=== PATIENT | male | born 1955 | race Caucasian/White ===

== ENCOUNTER → 2017-07-12 09:45 | Outpatient (CLI) | payer BC, SELFPAY ==
[2017-07-12 12:08] LABS: Absolute Lymphocyte Count 1.81 X10^3/ul (0.83-4.51); Absolute Neutrophil Count 2.7 X10^3/uL (2.0-7.7); Basophil# 0.02 X10^3/uL; Basophil% 0.4 % (0-1); Eosinophil# 0.11 X10^3/uL; Eosinophils% 2.2 % (0-5); Hematocrit 47.2 % (40-54); Lymphocyte # 1.81 X10^3/ul (4.0); Lymphocyte % 36.6 % (19-41); Mean Corp Hgb Conc 33.9 g/gl (32-36); Mean Corpuscular Hgb 28.5 pg (27.0-32.0); Mean Platelet Vol. 9.5 fl (6.2-12.0); Monocyte# 0.31 X10^3/uL; Monocyte% 6.3 % (0-10); Neutrophil # 2.67 X10^3/uL (2.7-7.7); Neutrophil % 54.1 % (47-70); Platelet Count 256 K/mm3 (150-450); RBC Distribution Width CV 12.9 % (11.6-14.6); RBC Distribution Width SD 39.8 fl (35.1-43.9); Red Blood Count 5.62 M/mm3 (4.6-6.2); White Blood Count 4.9 K/mm3 (4.4-11.0)
[2017-07-12 12:14] LABS: POSITIVE COUNT NO; POSITIVE DIFFERENTIAL NO; POSITIVE MORPHOLOGY NO
[2017-07-12 12:23] LABS: ALB/GLOB Ratio 1.1 RATIO (0.9-2.4); AST(SGOT) 18 U/L (15-37); Alanine Aminotransfer ALT/SGPT 29 U/L (16-61); Albumin, Serum 3.8 g/dL (3.2-5.0); Alkaline Phosphatase 65 U/L (45-117); Anion Gap 6 (5-15); BUN 16 mg/dL (7-18); BUN/Creat Ratio 13.6 RATIO (10-20); Calcium,Total 8.7 mg/dL (8.5-10.1); Chloride 107 mmol/L (98-107); Cholesterol 191 mg/dL (200); Creatinine, Serum 1.18 mg/dL (0.70-1.30); EST Glomerular Filtration Rate 67 mL/min (>60); Est Glom Filt Rate - Afr Amer 81 mL/min (>60); Globulin 3.4 g/dL (2.2-4.2); Glucose 97 mg/dL (74-106); High Density Lipoprotein 53 mg/dL; PSA,Total - Annual Screen 0.78 ng/mL (0.00-4.00); Potassium 3.7 mmol/L (3.5-5.1); Protein, Total 7.2 g/dL (6.4-8.2); Sodium Level 141 mmol/L (136-145); Thyroid Stim Hormone (TSH) 5.22 uIU/mL (0.358-3.74); Triglycerides 96 mg/dL; Very Low Density Lipoprotein 19 mg/dL (5-40)
== END ==
PROVIDERS: Family Provider Family Medicine; PCP Family Medicine; Visit Provider Family Medicine
DX: Z00.01 Encounter for general adult medical examination with abnormal findings (principal); Z12.5 Encounter for screening for malignant neoplasm of prostate; R53.83 Other fatigue
CPT/HCPCS: 36415; 80053; 80061; 84153; 84443; 85025; G0103

== ENCOUNTER 2017-08-17 07:48 | Day surgery (SDC) | payer BC, SELFPAY ==
[2017-08-17 08:13] VITALS: BP 130/87; PULSE 64; RESP 16; TEMP 36.4; O2SAT 100; BMI 23.7
--- NOTE | 2017-08-17 08:33 | H&P.OPEN ---
Past Medical/Surgical History - Planned Operation Planned Operative Procedure/s: COLONOSCOPY Date of Operative Procedure: 08/17/17 Permit Signed: Yes S.O.S: No Is This Patient Having a Total Joint: No - Previous Hospitalizations/Surgeries HX Hospitalizations: No Any Problems With Anesthesia: No You/Your Family Experience Fever (Hyperthermia) With Anes: No Cholinesterase deficiency: No - Cardiovascular Hx Chest Pain within Last 2 months: No Hx of Irregular Heartbeat and/or Afib: No Hx Heart Attack: No Hx Congestive Heart Failure: No Hx Rheumatic Fever: No Hx Hypertension: No Hx Internal Defibrillator: No Hx Pacemaker: No Hx Cardiac Catheterization: No Hx Cardiac Surgery/Stents/Etc.: No Hx Stress Test: No HX Edema: No Hx Pain in Legs when Walking/Leg Cramps: No - Respiratory Chronic Cough: No HX of Shortness of Breath: No Hoarseness: No Hx Chronic Obstructive Pulmonary Disease (COPD): No Hx Asthma: No Hx Emphysema: No Hx Sleep Apnea: No Hx Oxygen Use at Home: No Hx Respiratory Tract Infection/Cold (presently): No Do You Snore Loudly (louder than talking or can be heard): No Do You Often Feel Tired/ Fatigued/ Sleepy Dring Daytime?: No Has Anyone Observed You Stop Breathing During Sleep?: No Result (for STOP score): Negative Hx Smoking: No Smoking Status: Never smoker - Gastrointestinal Hx Gastroesophageal Reflux: No Hx Gastrointestinal Disorders: No Hx Gastrointestinal Bleed: No Hx Ulcer: No Hx Hiatal Hernia: No Difficulty Chewing/Swallowing: No Recent Onset of Swallowing Problems: No Special diet followed at home: No Hx Unplanned Weight Loss of 20#: No HX Unplanned Weight Gain of 20#: No - Neurological Hx Seizures: No HX Syncope/Blackout Spells/Unconsciousness: No Hx CVA/Stroke: No Hx Transient Ischemic Attacks (TIA): No Hx Multiple Sclerosis: No Hx Parkinson's Disease: No Hx Head/Neck Injury: No Hx Headaches: Yes Hx Back Injury/Pain: Yes Recent Onset of Speech Difficulty: No Restless Legs: No Does patient have nerve stimulator: No - Blood Disorder Hx Leukemia: No Bleeding Tendencies: No Hx Deep Vein Thrombosis: No Hx High Cholesterol: No Blood Transmitted Disease: No Hx Hepatitis: No Hx Cirrhosis: No Hx Anemia: No Hx Blood Disorders: No - Genitourinary Hx Renal Disease: No - Musculoskeletal Hx Arthritis: No Hx Rheumatoid Arthritis: No Hx Gout: No Recent Onset of an Orthopedic Problem: No - Endocrine Hx Diabetes: No Thyroid Disease: No Hx Steroid Therapy: No - Psycho/Social Hx Substance Use: No Hx Alcohol Use: No Hx Anxiety: No Hx Depression: No Mental Illness: No Hx Dementia: No - Miscellaneous Hx Cancer: No Recent Exposure to Contagious Disease: No Active MRSA: No Hx of C-Diff: No Any Loose Teeth: No Allergies No Known Allergies Allergy (Verified 08/16/17 10:49) - Discharge Is Pt Admitted From a Assisted, or a Usp: No Who Could Help: -GILLIAN After D/C, Where Do you Plan to Go: Return Home - Physical Exam General: Alert, Oriented x3, Cooperative HEENT: Atraumatic Lungs: Normal air movement Cardiovascular: Regular rate, Regular Rhythm Abdomen: Soft, Non Tender, Non-Distended Vital Signs Temp Pulse Resp BP Pulse Ox 97.5 F L 64 16 130/87 H 100 08/17/17 08:13 08/17/17 08:13 08/17/17 08:13 08/17/17 08:13 08/17/17 08:13 Oxygen Delivery Method Room Air Weight: 184 lb 11.958 oz Body Mass Index (BMI) 23.7 Assessment/Plan 62-year-old male for screening colonoscopy 1. Patient reports no issues at this time. He is not having any bleeding or abdominal pain. He has no family history of colon cancer. The patient has never had a colonoscopy in the past. 2. I explained endoscopy in detail to the patient. I explained the risks including but not limited to stroke or heart attack with anesthesia, perforation of the GI tract, bleeding, infection. I explained that any of these could necessitate further emergency surgery. The patient understands and all questions were answered sufficiently. The patient wishes to proceed with procedure. Tobias Downey MD Pager: [facility] [address] [place] [address] Office: Surgery Risks - Colonoscopy Risks Include but are not Limited To: Risks include but are not limited to: Bleeding, perforation requiring further surgery, inability to complete colonoscopy requiring barium enema.
[2017-08-17 09:05] VITALS: BP 130/87; BP 91/72; PULSE 70; RESP 16; TEMP 36.1; O2SAT 100
--- NOTE | 2017-08-17 09:05 | PCM.OPRPT ---
Problem List (1) Screen for colon cancer Status: Acute Report of Operation Date of Procedure: 08/17/17 Pre-Operative Diagnosis: Screening colonoscopy Post-Operative Diagnosis: Normal colonoscopy Surgery/Procedure Performed:: Colonoscopy Description of Procedure: The major risks and benefits associated with the procedure were explained to the patient in detail. The patient verbalized understanding and agreement with the same. The patient was brought to the endoscopy suite. After adequate sedation was achieved, the patient was placed in the left lateral decubitus position and a digital rectal exam was performed. This examination was within normal limits. A well-lubricated colonoscope was then inserted into the rectum and advanced under direct visualization to the level of the cecum. The bowel prep was good. The cecum was identified by both visual and anatomic landmarks. A photograph was taken of the end of the cecum. The scope was then fully withdrawn while examining the color, texture, anatomy and integrity of the mucosa from the cecum to the anal canal. The findings were consistent with normal colonic mucosa. Over 6 minutes were taken to examine the colonic mucosa. Upon reaching the rectum the scope was retroflexed to examine the distal rectal vault. The scope was then straightened and was completely retrieved upon exiting the anal canal and the procedure was terminated. The patient was then transferred to the recovery room in stable condition. Recommendations for follow up: 10 years
[2017-08-17 09:10] VITALS: BP 111/85; BP 130/87; PULSE 65; RESP 16; O2SAT 100
[2017-08-17 09:15] VITALS: BP 130/87; BP 95/67; PULSE 62; RESP 16; O2SAT 100
[2017-08-17 09:20] VITALS: BP 130/87; BP 98/72; PULSE 58; RESP 16; TEMP 36.4; O2SAT 100
[2017-08-17 09:46] VITALS: BP 130/87
== END 2017-08-17 09:52 | disposition home or self-care (01) ==
LOC: EN 07:48 → AC 07:51
PROVIDERS: Family Provider Family Medicine; PCP Family Medicine; Visit Provider Surgery
PROC: 0DJD8ZZ Inspection of Lower Intestinal Tract, Via Natural or Artificial Opening Endoscopic (ICD-10-PCS; CPT 45378; principal; 2017-08-17 08:40)
DX: Z12.11 Encounter for screening for malignant neoplasm of colon (principal)
CPT/HCPCS: 45378; J7120

== ENCOUNTER 2018-04-04 18:41 | Emergency (ER) | payer OTHER, BC, SELFPAY ==
[2018-04-04 18:41] VITALS: BP 136/86; PULSE 83; RESP 20; TEMP 36.3; O2SAT 100; BMI 24.2
--- NOTE | 2018-04-04 19:02 | RAD_ITS ---
HISTORY: PAIN TO ANTERIOR LOWER RIBS WITH PALPABLE LUMP S/P FALL DOWN [facility] COMPARISON: None FINDINGS: # of images incl. paperwork: 5 XR Ribs Unilateral W/ PA Chest Min 3 Views: PA chest 4 views right ribs. LINES/DEVICES: None. LUNGS: Radiographically clear. No consolidation, edema or effusion. No pneumothorax. MEDIASTINUM AND CARDIOVASCULAR STRUCTURES: Cardiac silhouette not enlarged. Central airways and mediastinal contour are unremarkable. RIBS AND OSSEOUS STRUCTURES: Unremarkable. No fractures. RAD/Ribs Uni Min 3V w/PA Chest IMPRESSION: Negative chest and ribs series. at 1927 Reported and signed by: Farhad Alexander MD Electronically Signed: Farhad Alexander, at 19:26 EST Tel , Service support ,
[2018-04-04 20:08] VITALS: BP 119/90; PULSE 81; RESP 16; O2SAT 99
--- NOTE | 2018-04-04 20:32 | CT_ITS ---
HISTORY: RUQ PAIN, FELL ON STEPS AT WORK, RT RIB PAIN TECHNIQUE: Helically acquired images were obtained of the abdomen and pelvis following IV contrast. A radiation dose optimization technique was used for this scan. IV Contrast dosage and agent: 100 cc Isovue-300 administered intravenously. Oral contrast: None. COMPARISON: Chest and right rib radiographs same date. FINDINGS: # of images incl. paperwork: 376 LOWER CHEST: Lung bases are clear. No cardiomegaly or pericardial effusion observed. LIVER: Homogeneous. No focal mass. No apparent hepatic injury. GALLBLADDER AND BILIARY TREE: No calcified gallstones. There is no gallbladder distension or wall edema. No intra- or extrahepatic biliary ductal dilation. KIDNEYS AND URETERS: Normal renal size and position. There is no hydronephrosis or evidence of renal injury. ADRENAL GLANDS: Non-enlarged. SPLEEN: Normal size without focal cystic or solid mass. PANCREAS: No focal cystic or solid mass. BOWEL: No stomach or bowel distension. No focal inflammatory change observed. Normal appendix. LYMPH NODES: No enlarged mesenteric or retroperitoneal lymph nodes. PERITONEUM: No ascites or free air. No other fluid collection. VESSELS: Aorta is non-dilated. URINARY BLADDER: Incompletely distended, otherwise grossly unremarkable. REPRODUCTIVE ORGANS: No pelvic masses or pelvic ascites. ABDOMINAL WALL: No discrete abdominal or pelvic wall hernia observed. BONES: No acute fracture or concerning osseous lesions. CT/Abdomen/Pelvis W IV Cont ONLY IMPRESSION: No apparent injury or etiology for right upper quadrant pain. Individualized dose optimization techniques were used for this CT. at 2229 Reported and signed by: Farhad Alexander MD Electronically Signed: Farhad Alexander, at 22:28 EST Tel , Service support ,
[2018-04-04] MEDS: Ondansetron 4 MG/2 ML Vial IV (20:56)
[2018-04-04] MEDS: 0.9% Normal Saline 1,000 ML 1000 ML IV (20:56)
[2018-04-04] MEDS: Morphine 4 MG/ML Syringe IV (20:58)
[2018-04-04 21:15] LABS: Absolute Lymphocyte Count 1.69 X10^3/ul (0.83-4.51); Absolute Neutrophil Count 6.4 X10^3/uL (2.0-7.7); Basophil# 0.02 X10^3/uL; Basophil% 0.2 % (0-1); Eosinophil# 0.07 X10^3/uL; Eosinophils% 0.8 % (0-5); Hematocrit 45.6 % (40-54); Hemoglobin 15.2 g/dl (13.0-16.5); Lymphocyte # 1.69 X10^3/ul (4.0); Lymphocyte % 19.7 % (19-41); Mean Corp Hgb Conc 33.3 g/gl (32-36); Mean Corpuscular Hgb 28.4 pg (27.0-32.0); Mean Corpuscular Volume 85.2 fL (80-94); Mean Platelet Vol. 9.1 fl (6.2-12.0); Monocyte# 0.37 X10^3/uL; Monocyte% 4.3 % (0-10); Neutrophil % 74.8 % (47-70); Platelet Count 210 K/mm3 (150-450); RBC Distribution Width CV 13.3 % (11.6-14.6); RBC Distribution Width SD 41.2 fl (35.1-43.9); Red Blood Count 5.35 M/mm3 (4.6-6.2); White Blood Count 8.6 K/mm3 (4.4-11.0)
[2018-04-04 21:20] LABS: POSITIVE COUNT NO; POSITIVE DIFFERENTIAL NO; POSITIVE MORPHOLOGY NO
--- NOTE | 2018-04-04 21:22 | ED.DCSUM_ITS ---
- ER Visit Summary Date of Service: 04/04/18 Chief Complaint: Fall History of Present Illness: The patient is a [address] Horn. He reports that at work today he slipped on the steps and fell onto his buttocks. He reports that the pain that he is experiencing in the right upper quadrant and lower right ribs. States pain was 8 out of 10 worsened through 10 currently. He describes it as sharp. States is worsened by movement relieved by rest. Patient denies any blow to the head or loss of consciousness. No neck, shoulder, wrist, or hip pain. He is not on blood thinner. Physical Examination: Vitals: Stable. Afebrile. Neck: No vertebral tenderness. Full ROM without difficulty. Cleared by NEXUS criteria. Back: No vertebral tenderness. General: A&O x 3. NAD. Cardiovascular exam: Regular rate and rhythm, no murmur, rub or gallop. Respiratory exam: Moderate tenderness palpation over the lower ribs on the right both anteriorly and posteriorly. This area does appear swollen anteriorly. There is no contusion or fluid collection. No crepitus. Clear to auscultation bilaterally. No wheezes or stridor. Abdominal exam: Soft, moderate tenderness palpation right upper quadrant, nondistended, normal bowel sounds. No pain in RUQ or LUQ specifically. No perito vitor signs. Extremity: Atraumatic. No pain with range of motion. Test Results: Right rib series shows no acute disease. No pneumothorax or rib fractures. CT and pelvis with IV contrast only shows no acute disease. CBC is more for segment neutrophils 75. Chem-7 more for BUN of 21. LFTs are normal. Emergency Department Course and Treatment: Patient was treated with morphine and Zofran IV. He is resting comfortably. Treatment Plan: Patient will be discharged with [place]. Instructed to follow-up with corporate care in 1 week for another exam. Return to the emergency department for any worsening symptoms. Disposition: To home in improved and stable condition. Impression: 1 1. Fall. 2. Chest/upper abdominal swelling. This note was generated with [employer] dictation software. It may contain incorrect words, spelling, and punctuation that were not noted in review of the chart prior to signing ED Disposition - Plan for ED Patient: Disposition: Home or Assisted Living Instructions: ED Contusion Chest Wall Prescriptions: Hydrocodone Bitart/Apap 5-325 [[place] 5MG-325MG] 1 tablet PO Q4H PRN PRN 2 Days #10 tablet PRN Reason: Pain Referrals: Corporate,Care [GROUP OF PHYSICIANS] - 1 Week
[2018-04-04 21:32] LABS: ALB/GLOB Ratio 1.2 RATIO (0.9-2.4); AST(SGOT) 16 U/L (15-37); Alanine Aminotransfer ALT/SGPT 24 U/L (16-61); Albumin, Serum 3.7 g/dL (3.2-5.0); Alkaline Phosphatase 69 U/L (45-117); Anion Gap 6 (5-15); BUN 21 mg/dL (7-18); BUN/Creat Ratio 18.8 RATIO (10-20); Calcium,Total 8.6 mg/dL (8.5-10.1); Chloride 107 mmol/L (98-107); Creatinine, Serum 1.12 mg/dL (0.70-1.30); EST Glomerular Filtration Rate 71 mL/min (>60); Est Glom Filt Rate - Afr Amer 86 mL/min (>60); Estimated Creatinine Clearance 80.53 ml/min; Globulin 3.2 g/dL (2.2-4.2); Glucose 105 mg/dL (74-106); Potassium 3.7 mmol/L (3.5-5.1); Protein, Total 6.9 g/dL (6.4-8.2); Sodium Level 141 mmol/L (136-145)
[2018-04-04 22:10] VITALS: BP 131/81; PULSE 64; RESP 17; O2SAT 96
[2018-04-04] MEDS: HYDROcodone Bitartrate/Apap 5/325 Tablet PO (23:31)
--- NOTE | 2018-04-04 23:33 | ED.RN ---
pt's employer does not require a test. they are to follow up with corporate care.
[2018-04-04 23:34] VITALS: BP 128/97; PULSE 67; RESP 16; O2SAT 97
== END 2018-04-04 23:35 | disposition home or self-care (01) ==
PROVIDERS: Emergency Provider Emergency Medicine; Family Provider Family Medicine; PCP Family Medicine
DX: R22.2 Localized swelling, mass and lump, trunk (principal); R19.01 Right upper quadrant abdominal swelling, mass and lump; W10.8XXA Fall (on) (from) other stairs and steps, initial encounter; Y99.0 Civilian activity done for income or pay
CPT/HCPCS: 71101; 74177; 80053; 85025; 96361; 96374; 96375; 99285; J7030; Q9967; J2405

== ENCOUNTER → 2019-04-25 16:06 | Outpatient (CLI) | payer OTHER, SELFPAY ==
[2019-03-26 09:28] VITALS: BMI 24.2
--- NOTE | 2019-04-25 16:12 | RAD_ITS ---
STUDY: X-RAY - LUMBAR SPINE REASON FOR EXAM: Male, 64 years old. PERSISTENT LOW BACK PAIN WITH INTERMITTENT RADIATION TO THE RIGHT LEG X 2 MONTHS CLINICAL HISTORY: 64 years Male, PERSISTENT LOW BACK PAIN WITH INTERMITTENT RADIATION TO THE RIGHT LEG X 2 MONTHS COMPARISON: None. TECHNIQUE: 5 view FINDINGS: Studies of the lumbar spine in 5 projections shows all the lumbar vertebrae to be in excellent anatomic position and alignment. On the oblique views the lamina are all intact. The intervertebral disc spaces are all well maintained. There is no evidence of fracture, dislocation or bony destruction. RAD/L/S Spine Min 4 Views IMPRESSION: Normal 5 view lumbar spine. Electronically Signed: Basilio Miller, at 15:22 EST Tel , Service support ,
[2019-04-25 17:43] LABS: Absolute Lymphocyte Count 1.95 X10^3/uL (0.83-4.51); Absolute Neutrophil Count 4.3 X10^3/uL (2.0-7.7); Basophil# 0.03 X10^3/uL; Basophil% 0.4 % (0-1); Eosinophil# 0.17 X10^3/uL; Eosinophils% 2.4 % (0-5); Hematocrit 47.3 % (40-54); Hemoglobin 15.2 g/dL (13.0-16.5); Lymphocyte # 1.95 X10^3/ul (4.0); Lymphocyte % 27.7 % (19-41); Mean Corp Hgb Conc 32.1 g/dL (32-36); Mean Corpuscular Hgb 27.3 pg (27.0-32.0); Mean Corpuscular Volume 84.9 fL (80-94); Mean Platelet Vol. 9.3 fl (6.2-12.0); Monocyte# 0.54 X10^3/uL; Monocyte% 7.7 % (0-10); NRBC Flagged by Analyzer 0 % (0-5); Neutrophil # 4.33 X10^3/uL (2.7-7.7); Neutrophil % 61.5 % (47-70); Platelet Count 218 K/mm3 (150-450); RBC Distribution Width CV 13.3 % (11.6-14.6); RBC Distribution Width SD 40.9 fl (35.1-43.9); Red Blood Count 5.57 M/mm3 (4.6-6.2)
[2019-04-25 18:14] LABS: ALB/GLOB Ratio 1.1 RATIO (0.9-2.4); AST(SGOT) 16 U/L (15-37); Alanine Aminotransfer ALT/SGPT 31 U/L (16-61); Albumin, Serum 3.8 g/dL (3.2-5.0); Alkaline Phosphatase 64 U/L (45-117); Anion Gap 3 (5-15); BUN 19 mg/dL (7-18); BUN/Creat Ratio 17.3 RATIO (10-20); Chloride 105 mmol/L (98-107); EST Glomerular Filtration Rate 72 mL/min (>60); Est Glom Filt Rate - Afr Amer 87 mL/min (>60); Globulin 3.5 g/dL (2.2-4.2); Glucose 90 mg/dL (74-106); PSA,Total - Annual Screen 0.76 ng/mL (0.00-4.00); Potassium 3.9 mmol/L (3.5-5.1); Protein, Total 7.3 g/dL (6.4-8.2); Sodium Level 140 mmol/L (136-145); T4 Free Direct 0.93 ng/dL (0.76-1.46); Thyroid Stim Hormone (TSH) 5.76 uIU/mL (0.358-3.74)
== END ==
PROVIDERS: PCP Family Medicine; Referring Provider Family Medicine; Visit Provider Family Medicine
DX: Z00.00 Encounter for general adult medical examination without abnormal findings (principal); Z12.5 Encounter for screening for malignant neoplasm of prostate; R79.89 Other specified abnormal findings of blood chemistry; M54.17 Radiculopathy, lumbosacral region
CPT/HCPCS: 36415; 72110; 80053; 84153; 84439; 84443; 85025; G0103

== ENCOUNTER 2023-10-28 09:21 | Day surgery (SDC) | payer MEDICARE, SELFPAY ==
[2023-10-28] VITALS (10 sets, daily range): BP systolic 115–139; BP diastolic 86–94; PULSE 55–75; RESP 14–18; TEMP 36–36.6; O2SAT 95–100; BMI 23.0
--- NOTE | 2023-10-28 09:49 | EKG12_ITS ---
Test Reason : preop Blood Pressure : / mmHG Vent. Rate : 062 BPM Atrial Rate : 062 BPM P-R Int : 168 ms QRS Dur : 094 ms QT Int : 404 ms P-R-T Axes : 070 051 010 degrees QTc Int : 410 ms Normal sinus rhythm Normal ECG No previous ECGs available Confirmed by Dameon Ruiz ([id number]), material expeditor [place] ([id number]) on 10/29/2023 6:36:34 AM Referred By: Nerissa Vazquez Confirmed By:Dameon Ruiz
[2023-10-28] MEDS: Lactated Ringers 1,000 ML 15 ML IV (09:54)
--- NOTE | 2023-10-28 09:57 | PCM.HP.BLA ---
History and Physical Date of Admission: 10/28/23 Date of Service: 10/05/23 MR#: [id number] Acct: [id number] Name: HUSSAIN DAIGLE Jr. Rep #: [id number] : 1955 Provider: Dr. Nerissa Vazquez MD Age/Sex: 68/M Location: [facility] Status: Signed Intake Vital Signs 03/26/2008:23 10/04/2413:33 Height 6 ft 2 in 6 ft 2 in Weight: 185 lb BMI 23.7 BP 108/71 Blood Pressure Location Rt brachial Position Sitting Respiration 17 Pulse 70 Pulse Source Monitor Temp 97.2 F L Temp Source Temporal Pulse Oximetry (%) 95 Oxygen Delivery Method room air Intake Visit Reasons: HERNIA'S Chief Complaint: hernia's Is patient in pain?: No Allergies No Known Allergies Allergy (Verified 10/05/23 14:35) Medications ?Medication ?Instructions ?Recorded ?Confirmed ?Type omega 5-hzu-gmw-fish oil 60 mg-90 1 cap PO DAILY 10/05/23 10/05/23 History mg-500 mg capsule (Fish Oil) Have you fallen in the past year?: No PFSH Social History Smoking Status: Never smoker alcohol intake: never HPI HPI HPI: 68-year-old male presents due to painful left inguinal hernia. Patient states he noticed this for the last 3 months question if he may also have 1 on the right. Patient states that it does not reduce when he lays down but there is a bulge when he stands up. And when it does get reduced it does come right back. Patient denies any right groin pain or any pain at his umbilical hernia which he states he has had for a long time. Patient patient states he has had a colonoscopy 07/2017 which was negative. ROS General General: Yes fatigue; No weight change, appetite, colon cancer, breast cancer or weakness HEENT HEENT: No difficulty swallowing, eye injury, eye surgery, swollen glands or hoarseness Endo Endocrine: No thyroid disease, diabetes mellitus, thyroid cancer, Hair loss, heat intolerance or cold intolerance Skin Skin: No rash or changing moles Musc Musculoskeletal: Yes back problems; No arthritis, rheumatoid arthritis, gout or joint pain Cardio Cardiovascular: No murmur, pacemaker, heart disease, atrial fibrillation, high blood pressure, heart attack, heart stent, palpitations, shortness of breat with exertion or chest pain Psych Psychiatric: No depression, anxiety or hearing voices Resp Respiratory: No shortness of breath, No sleep apnea, No cough, No COPD, No asthma, No emphysema and No wheezing Gastro Gastrointestinal: No abdominal pain, No nausea or vomiting, No diarrhea, No constipation, No blood in stool, No acid reflux, No hemorrhoids, No ulcers, No gallbladder problem and No black,tarry stools Todd Hematologic: No blood thinners, No blood disorders, No bleeding, No anemia and No blood clots Neuro Neurologic: No system reviewed and no additional complaints, except as documented, No as per HPI, No abnormal gait, No abnormal hearing, No abnormal movements, No abnormal speech, No behavioral changes, No burning sensations, No confusion, No convulsions, No disequilibrium, No dizziness, No localized weakness, No frequent falls, No headache(s), No lack of coordination, No loss of vision, No memory loss, No numbness, No other visual disturbances, No radicular pain, No restless legs, No sensory deficit, No syncope, No tingling, No tremor(s), No weakness and No other Exam Const General: cooperative, healthy appearing, comfortable and no acute distress [facility] Head: normocephalic and atraumatic Neck Neck: supple Resp Effort & Inspection: normal respiratory effort Cardio Rate: regular rate GI Inspection: non-distended Palpation: soft, hernia umbilical (Reducible) and other (Left inguinal hernia on exam likely indirect, reducible-no obvious right inguinal hernia on exam) and nontender Skin General: no rashes or lesions noted Neuro General: CN's II-XI intact bilaterally Extrem General: normal to inspection Psych Mental Status: mental status grossly normal Attitude: cooperative Assessment and Plan Assessment and Plan (1) Left inguinal hernia: Status: Acute (2) Umbilical hernia without obstruction and without gangrene: Status: Acute Plan Patient will hold his fish oil x 5 days and avoid aspirin x 5 days which he only takes for headaches. Plan to do a laparoscopic left inguinal hernia repair with mesh possible bilateral, umbilical hernia repair with mesh. Reviewed the procedure with the patient including the risks, including but not limited to infection, bleeding, paresthesia, chronic pain, injury to small bowel or contents of the spermatic cord, and recurrence. Patient no further question this time. Nerissa Vazquez M.D. Pager: [phone] [facility] [address] [place] [address], [facility], [address] [place] [address] Office: [phone] Coding Level of Care Code Off vis,new,level 3 Diagnoses Left inguinal hernia K40.90 Umbilical hernia without obstruction and without gangrene K42.9 Clinical Quality Measures Falls Risk Screening/Assistive Devices Have you fallen in the past year?: No 10/06/23 1239 <Electronically signed by Nerissa Vazquez MD> Date Nerissa Vazquez MD
--- NOTE | 2023-10-28 10:42 | PRE.ANES_ITS ---
ASA Classification* ASA Classification ASA Classification: 1 Assessment & Plan Anesthesia* Anesthesia Assessment Anesthesia Assessment: Discussed sedation and/or anesthesia options, risks, benefits, and alternatives with patient/parents/legal guardian/POA. Questions invited. The patient/parents/legal guardian/POA seems to understand and agrees to proceed with anesthesia plan. Reviewed the physical assessment, medical history, allergy history and patient home medications list prior to surgery/procedure/anesthetic and documented any changes. Performed airway and anesthesia risk assessments. Anesthesia Type Anesthesia Type: General History Source History Obtained from:: Patient and Chart Anesthesia Focused Assessment* Temperature: 97.2 F Pulse Rate: 60 Blood Pressure: 129/86 Respiratory Rate: 18 Pulse Ox: 100 Oxygen Delivery Method: Room Air Airway Assessment Mouth opens: >3 cm Mallampati Score: I Teeth Condition: Caps/Crowns (Caps on 6, 7 and 8. Also 1 left lower molar. ARE tight.) Neck Range of motion (ROM): Full ROM Focused Labs Anesthesia Preop lab: CBC WBC 7.0 K/mm3 (4.4-11.0) 04/25/19 16:13 RBC 5.57 M/mm3 (4.6-6.2) 04/25/19 16:13 Hgb 15.2 g/dL (13.0-16.5) 04/25/19 16:13 Hct 47.3 % (40-54) 04/25/19 16:13 Plt Count 218 K/mm3 (150-450) 04/25/19 16:13 CHEMISTRY Potassium 3.9 mmol/L (3.5-5.1) 04/25/19 16:13 Sodium 140 mmol/L (136-145) 04/25/19 16:13 BUN 19 mg/dL (7-18) H 04/25/19 16:13 Creatinine 1.10 mg/dL (0.70-1.30) 04/25/19 16:13 Glucose 90 mg/dL (74-106) 04/25/19 16:13 TSH 5.76 uIU/mL (0.358-3.74) H 04/25/19 16:13 COAG Pre-Assessment Diagnosis/Proposed Procedure Planned Operative Procedure(s): LAP LEFT INGUINAL HERNIA POSS BILAT WITH MESH AND UMBILICAL HERNIA REPAIR Anesthesia History 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 When Was Last Pacemaker Check QUESTION #4 FULL TEXT: You/Your Family Experience fever (hyperthermia) with Anesthesia Last Oral Intake Last Oral intake: Last Oral Intake NPO since 00:00 10/28/23 09:54 Meds taken in AM with sips of No 10/28/23 09:54 water? Meds patient instructed to take am of surgery PONV PONV - supervisor assembling: PONV - supervisor assembling Female No 10/26/23 12:15 HX of Motion Sickness Yes 10/26/23 12:15 HX of N/V After Surgery No 10/26/23 12:15 Non-Smoker Yes 10/26/23 12:15 Duration of Surgery greater Yes 10/26/23 12:15 than 60 minutes Number of Risk Factors 3 10/26/23 12:15 PONV Score Moderate Risk 10/26/23 12:15 Height & Weight Height & Weight: Anesthesia: Height & Weight Height 6 ft 2 in 10/28/23 09:54 Weight: 81.465 kg 10/28/23 09:54 Body Mass Index (BMI) 23.0 10/28/23 09:54 Respiratory Assessment Respiratory Assessment - supervisor assembling: Respiratory Tract Infection Hx - supervisor assembling Hx Respiratory Tract Infection No 10/26/23 12:15 STOP Sleep Apnea STOP Sleep Apnea - supervisor assembling: STOP Sleep Apnea - supervisor assembling Hx Hypertension No 10/26/23 12:15 Hx Sleep Apnea No 10/26/23 12:15 CPAP No 08/17/17 09:05 BIPAP Do you snore loudly (louder No 10/26/23 12:15 than talking or can be heard Do you often feel tired/ Yes 10/26/23 12:15 fatigued/ sleepy during daytime? Has anyone observed you stop No 10/26/23 12:15 breathing during sleep? STOP Results Negative 10/26/23 12:15 QUESTION #5 FULL TEXT : Do you snore loudly (louder than talking or can be heard through closed doors)? 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 Specify any problems Hx of Preganancy in last 3 N/A 10/26/23 12:15 Months Nurse Filling Out Transfusion DSCHRIBER 10/26/23 12:15 & Questions: Date: 10/26/23 10/26/23 12:15 Time: 12:17 10/26/23 12:15 Patient unable to answer at this time (ie. confused, unrespo /Reproduction History /Reproductive History - supervisor assembling: /Reproductive Hx- supervisor assembling Hx Now No 10/26/23 12:15 Gestational Age (in weeks): EDC: Hx Hx Para Hx Section SAB No 10/26/23 12:15 Active Medications Active Medications: Current Medications Generic Name Dose Route Start Last Admin Trade Name Freq PRN Reason Stop Dose Admin Cefazolin Sodium 2 gm/ Sodium 110 mls @ 150 mls/hr 10/28/23 12:20 Chloride IV 10/28/23 13:03 PREOP ONE Lactated Ringer's 1,000 mls @ 15 mls/hr 10/28/23 09:45 10/28/23 09:54 IV 15 mls/hr .Q48H SALMA Administration PFSH Medical History Wears glasses Anxiety Arthritis Back pain Injury of head and neck Non-smoker Home Medications ?Medication ?Instructions ?Recorded ?Last Taken ?Type NK 10/26/23 Unknown History Allergy/AdvReac Type Severity Reaction Status Date / Time No Known Allergies Allergy Verified 10/28/23 09:52 Surgical History Hx of colonoscopy Social History Smoking Status: Never smoker alcohol intake: never Review of Systems (Anesthesia) ROS Narrative System reviewed and no additional complaints, except as documented.
[2023-10-28] MEDS: Cefazolin 2 GM in 0.9% Normal Saline (100mL Bag) 100 ML IV (11:05)
[2023-10-28] MEDS: Bupivacaine Mpf 0.5% 30 ML VIAL (12:34)
--- NOTE | 2023-10-28 12:37 | OP.PCM_ITS ---
Report of Operation Date of Procedure: 10/28/23 Pre-Operative Diagnosis: Left inguinal hernia, umbilical hernia Post-Operative Diagnosis: Left indirect inguinal hernia, umbilical hernia Surgery/Procedure Performed:: Laparoscopic left inguinal hernia repair with mesh and umbilical hernia repair with mesh Description of Surgical Findings:: No right inguinal hernia seen Surgeon: Nerissa Vazquez actuary manager: Sima White Type of Anesthesia: General/Supplemental Anesthesiologist: Marquez Perez Special Medications: ancef 2 grams IV x 1 Specimen's removed: none Estimated Blood Loss (mL): < 10 cc Description of Procedure: Indications: 68-year-old male presented with left inguinal hernia and umbilical which were symptomatic. Laparoscopic left inguinal hernia repair and umbilical with mesh was elected patient was agreeable. Description of procedure: Patient was brought to operating room placed supine operative table. Timeout was completed verifying correct patient, procedure, s ite, positioning, special, prior to beginning procedure. General anesthesia was induced. Rose catheter was placed. Patient's arms were tucked and padded appropriately. Infraumbilical curvilinear was made with a 15 blade scalpel. The fascia was elevated and incised. Entry into the abdomen was confirmed visually. The Abraham trocar was placed. Laparoscope was placed. Verifying no injury during initial trocar placement. Patient was placed in Trendelenburg position. Two 5 mm trochars were placed lateral to the rectus sheath under direct visualization. Both the inguinal regions were inspected and left indirect hernia was seen. No inguinal hernia on the right. The median umbilical ligament was divided sharply with electrocautery. Peritoneum was incised with the endoscopic scissors along a line 2 cm above the superior edge of the hernia defect extending from the median umbilical ligament to anterior superior iliac spine. Peritoneal flap was mobilized inferiorly using blunt and sharp dissection. The inferior epigastric vessels were exposed and symphysis pubis and identified. Mikey's ligament was identified. Dissection was continued inferiorly to the iliopubic track with care taken to avoid injury to the femoral branch of the genitofemoral nerve and lateral femoral cutaneous nerve. The cord structures were parietalized. The indirect hernia sac was noted and mobilized from the cord structures and reduced into the peritoneal cavity. A medium size Bard 3D max mesh left was used. The mesh was rolled longitudinally into a compact cylinder and passed through the trocar. The cylinder was placed along the inferior aspect of the working space and unrolled into place to completely cover the direct, indirect and femoral spaces. The mesh was secured in place medially to Mikey's ligament using the securestrap as well as to the anterior abdominal wall. Care was taken to avoid the inferolateral triangle containing iliac vessels and genital nerves. The peritoneal flap was closed over mesh and secured with tacks in similar positions of safety using the SecureStrap. Small hole in the peritoneal flap which was closed with Hem-o-prema clips. After ensuring adequate hemostasis, the trochars were removed and pneumoperitoneum allowed to escape. The fascia was cleared from umbilical hernia hernia defect was 1.5 cm x 1.5 cm. This was closed with a Ventralex ST hernia patch small. The tails were secured with 1 Nurolon mattress sutures and the defect was closed with additional 1 Nurolon dalgcb-oh-cojey suture. Skin of the umbilicus was tacked down to the fascia with interrupted 3-0 Vicryl suture. The skin was closed with subdermal 3-0 Vicryl sutures and 4-0 Monocryl sutures and Steri-Strips. Cotton balls and Telfa were also placed over the umbilicus with an OpSite. Patient's testicles are also confirmed in the scrotum bilaterally. Patient tolerated procedure well was taken to the postanesthesia care unit in stable condition. Grafts/Implants Used: Left medium Bard 3D max lot [id number], Ventralex ST patch- small Lot [id number] Complications none
--- NOTE | 2023-10-28 12:45 | DCINST_ITS ---
Discharge Instructions Diet Discharge Diet: Light diet - advance as tolerated Activity May shower in (days): 5 (Keep umbilical dressing clean dry and intact for 5 days. Okay to tape off with a Ziploc bag to shower. Or lower shower and upper sponge bath.) Lifting Restrictions: no lifting >20 lbs x 2 wks, no strenuous exercise for 4 wks Additional Activity Instructions:: - Dressing / Incision Call your doctor if your incision/area has: Continuous Slow Oozing, Sudden Increased Bleeding, Increased Pain/ Swelling, Increased Redness, Foul Smelling Discharge and Swelling at the incision site Call your doctor if you observe: Fever of 101 or Higher Remove Dressing in: 5 days (After 5 days okay to remove surgical dressing. Place cotton ball or rolled up gauze in bellybutton and retape daily for 2 more days.) Cleanse incision/area with: Do not get Incision Wet (for 5 days) Additional Dressing/Incision Instructions:: Steri-Strips will fall off in 7 to 10 days, if they do not fall off okay to remove after 10 days. Follow Up Care Please Follow Up With: Nerissa Vazquez MD When: Call the office for a follow-up appointment 2 weeks; after 5 PM and on the weekends call [phone] with any concerns. Test Results: Test results from this visit will be discussed in further detail at your follow- up appointment, if applicable. Discharge Plan Admission Attending Provider: Nerissa Vazquez Primary Care Provider: Jose Horn Instructions Print Language: Kosovan Discharge Orders/Prescriptions Prescriptions: New oxycodone 5 mg capsule 5 mg PO Q6H PRN (Reason: pain) 3 Days Qty: 10 0RF Referrals / Follow Up: Jose Horn DO [Primary Care Provider] - Disposition Disposition (needs filled in before D/C Order can be placed): Home, Self Care
--- NOTE | 2023-10-28 13:16 | SUR.PHASEI ---
jock strap in place
[2023-10-28] MEDS: oxyCODONE 5 MG Tablet PO (14:23)
--- NOTE | 2023-10-28 14:51 | PCM.POSTANE2 ---
Anesthesia Postop Eval I Sum Anesthesia Postop Eval I Summary Anesthesia Postop Eval I Summary: Anesthesia Postop Eval I: Assessment Summary Airway patent Spontaneous unlabored respirations Mental status nausea Vomiting Anesthesia Postop Eval I: Fluid Summary Crystalloid volume administer (ml) Colloids volume administered ( ml) Blood Product volume administered (ml) Total IV fluid infused Anesthesia Postop Eval I: Summary Notes Anesthesia Complication Anesthesia Complication Comment: Post-operative progress note Anesthesia: Postop Eval II Evaluation Mental status: Awake and Calm Pain Level: 1 nausea: No Vomiting: No Complications Anesthesia Complication: No
--- NOTE | 2023-10-28 14:54 | PCM.POST.ANE ---
Anesthesia: Postop Eval I Current Vital Signs Temperature: 97.5 F Pulse Rate: 64 Blood Pressure: 127/94 Respiratory Rate: 14 Pulse Ox: 99 Oxygen Delivery Method: Room Air Assessment Airway patent: Yes Spontaneous unlabored respirations: Yes Mental status: Awake and Calm nausea: No Vomiting: No Anesthesia Complication: No Fluid Hydration Crystalloid volume administer (ml): 1,000 Total IV fluid infused: 1,000 Progress Note Anesthesia document: Postop Eval 1 completed: Yes
== END 2023-10-28 15:13 | disposition home or self-care (01) ==
LOC: SDC 09:32 → AC 09:34
PROVIDERS: PCP Family Medicine; Referring Provider Surgery; Visit Provider Surgery
PROC: (CPT 49650; principal; 2023-10-28 10:40)
DX: K40.90 Unilateral inguinal hernia, without obstruction or gangrene, not specified as recurrent (principal); K42.9 Umbilical hernia without obstruction or gangrene
CPT/HCPCS: 49650; 49593; 93005; J7120; C1781; J2405